=== PATIENT | male | born 1955 | race Caucasian/White ===

== ENCOUNTER 2019-09-25 17:34 | Emergency (ER) | payer OTHER ==
--- NOTE | 2019-09-25 18:17 | ED Physician Documentation ---
PD HPI HEENT - Stated complaint Stated Complaint: HEARING AID STUCK IN EAR - Chief complaint Chief Complaint: Heent - History obtained from History obtained from: Patient - History of Present Illness Timing - onset: How many hours ago (2) Timing - duration: Hours (2) Timing - details: Abrupt onset (his mask earloop caught hearing aid as he took it off, and this twisted hearing aide out, but the dome detached and is stuck in ear canal, beyond reach of fingers.), Still present Location: Right ear Similar symptoms before: Has not had sx before Review of Systems Ears: reports: Loss of hearing (diminished). denies: Ear pain, Drainage/discharge, Tinnitus/ringing PD PAST MEDICAL HISTORY - Past Medical History Cardiovascular: Hypertension Respiratory: None Neuro: None GI: Diverticulitis - Past Surgical History Past Surgical History: No - Present Medications Home Medications: Ambulatory Orders Medication Instructions Recorded Confirmed Cyclobenzaprine [Flexeril] 10 mg PO TID PRN #20 tablet 02/22/14 Lisinopril 20 mg PO DAILY 02/22/14 02/22/14 Cyclobenzaprine [Flexeril] 10 mg PO TID PRN #20 tablet 07/09/14 oxyCODONE/ACET 5/325 [Percocet 5 1 - 2 each PO Q4-6H PRN #20 tablet 15 mg/325 mg] - Allergies Allergies/Adverse Reactions: Allergies Allergy/AdvReac Type Severity Reaction Status Date / Time codeine Allergy Unknown Verified 02/22/14 08:30 - Social History Does the pt smoke?: No Smoking Status: Never smoker Does the pt drink ETOH?: No Does the pt have substance abuse?: No - POLST Patient has POLST: No PD ED PE NORMAL - Vitals Vital signs reviewed: Yes - General General: Alert and oriented X 3, No acute distress, Well developed/nourished - HEENT HEENT: No: Ears normal (left normal. right mid canal with plastic appearing dome shaped FB c/w piece of hearing aide. ) Results - Vitals Vitals: Vital Signs - 24 hr 09/25/19 09/25/19 17:39 18:30 Temperature 36.8 C 37 C Heart Rate 77 76 Respiratory 18 16 Rate Blood Pressure 127/80 136/80 H O2 Saturation 96 98 Oxygen O2 Source Room air Procedures - FB removal FB location: Ear Removal method: Foreceps FB removal aftercare: No complications, Patient tolerated well, Removed successfully PD MEDICAL DECISION MAKING - ED course Complexity details: considered differential, d/w patient Departure - Departure Disposition: 01 Home, Self Care Clinical Impression: Foreign body in ear Qualifiers: Encounter type: initial encounter Laterality: right Qualified Code(s): T16.1XXA - Foreign body in right ear, initial encounter Condition: Stable Record reviewed to determine appropriate education?: Yes Instructions: ED Foreign Body Ear Canal Follow-Up: Fox Miramontes MD [Primary Care Provider] - Comments: The object is removed. The canal looks okay otherwise. There could potentially be a slight irritation and there for a day or so. Discharge Date/Time: 09/25/19 18:33
[2019-09-25 18:31] VITALS: BP 136/80
== END 2019-09-25 18:33 | disposition home or self-care (01) ==
LOC: ED 17:34
DX: T16.1XXA Foreign body in right ear, initial encounter (principal); X58.XXXA Exposure to other specified factors, initial encounter; Y93.89 Activity, other specified; I10 Essential (primary) hypertension
CPT/HCPCS: 69200; 99282

== ENCOUNTER 2020-04-04 11:48 | Outpatient (CLI) | payer OTHER | END 2020-04-04 11:49 | disposition left against medical advice (07) | LOC: EMS 11:48 | DX: S61.212A Laceration without foreign body of right middle finger without damage to nail, initial encounter (principal); S61.214A Laceration without foreign body of right ring finger without damage to nail, initial encounter; S61.216A Laceration without foreign body of right little finger without damage to nail, initial encounter; W29.8XXA Contact with other powered hand tools and household machinery, initial encounter; Y93.89 Activity, other specified ==

== ENCOUNTER 2022-08-18 08:10 | Outpatient (CLI) | payer MEDICARE, OTHER ==
[2022-08-18 12:19] LABS: BILIRUBIN,URINE NEGATIVE (NEGATIVE); GLUCOSE, URINE (UA) NEGATIVE (NEGATIVE); KETONES,URINE (UA) NEGATIVE (NEGATIVE); LEUKOCYTE ESTERASE, URINE NEGATIVE (NEGATIVE); NITRITE,URINE NEGATIVE (NEGATIVE); OCCULT BLOOD,URINE NEGATIVE (NEGATIVE); PH,URINE 7.5 PH (5.0-7.5); PROTEIN,URINE NEGATIVE (NEGATIVE); UROBILINOGEN,URINE 0.2 (NORMAL) E.U./dL (NORMAL)
[2022-08-18 12:21] LABS: BASOPHILS # (AUTO) 0.1 10^3/uL (0.0-0.1); BASOPHILS % (AUTO) 0.9 %; EOSINOPHILS # (AUTO) 0.2 10^3/uL (0.0-0.7); EOSINOPHILS % (AUTO) 2.3 %; HCT - HEMATOCRIT 47.5 % (42.0-52.0); HGB - HEMOGLOBIN 15.5 g/dL (14.0-18.0); LYMPHOCYTES # (AUTO) 2.6 10^3/uL (1.5-3.5); LYMPHOCYTES % (AUTO) 36.8 %; MEAN CORPUSCULAR HEMOGLOBIN 27.8 pg (27.0-31.0); MEAN CORPUSCULAR HGB CONC 32.6 g/dL (32.0-36.0); MEAN CORPUSCULAR VOLUME 85.3 fL (80.0-94.0); MEAN PLATELET VOLUME 10.7 fL (7.4-11.4); MONOCYTES # (AUTO) 0.7 10^3/uL (0.0-1.0); MONOCYTES % (AUTO) 10.4 %; NEUTROPHILS # (AUTO) 3.4 10^3/uL (1.5-6.6); NEUTROPHILS % (AUTO) 48.7 %; PLT - PLATELET COUNT 243 10^3/uL (130-450); RED BLOOD COUNT 5.57 10^6/uL (4.70-6.10); RED CELL DISTRIBUTION WIDTH 13.2 % (12.0-15.0)
[2022-08-18 12:31] LABS: BACTERIA,URINE Rare /HPF (None Seen); CLARITY,URINE CLEAR (CLEAR); RBC,URINE 0-5 /HPF (0-5); SQUAMOUS EPITHELIAL CELL,UR NONE SEEN (<= Few); WBC,URINE 0-3 /HPF (0-3)
[2022-08-18 12:36] LABS: ALBUMIN 4.3 g/dL (3.2-5.5); ALBUMIN/GLOBULIN RATIO 1.4 (1.0-2.2); ALKALINE PHOSPHATASE 62 IU/L (42-121); ALT ALANINE AMINOTRANSFERASE 23 IU/L (10-60); AST ASPARTATE AMINOTRANSFERASE 20 IU/L (10-42); BILIRUBIN,TOTAL 0.7 mg/dL (0.2-1.0); BUN - BLOOD UREA NITROGEN 20 mg/dL (6-20); CARBON DIOXIDE - CO2 27 mmol/L (21-32); CHLORIDE 105 mmol/L (101-111); CHOLESTEROL 189 mg/dL; CREATININE 1.1 mg/dL (0.6-1.2); GFR - MDRD 67 (>89); GLUCOSE 94 mg/dL (70-100); HDL CHOLESTEROL 47 mg/dL; LDL CHOLESTEROL,CALCULATED 119 mg/dL; LDL/HDL RATIO 2.5 (<3.6); POTASSIUM 4.1 mmol/L (3.5-5.0); SODIUM 138 mmol/L (135-145); TOTAL PROTEIN 7.3 g/dL (6.7-8.2); TRIGLYCERIDES 115 mg/dL; VLDL CHOLESTEROL 23 mg/dL
== END 2022-08-18 08:11 | disposition home or self-care (01) ==
LOC: LAB.N 08:10
PROVIDERS: ATTEND Nurse Practitioner
DX: I10 Essential (primary) hypertension (principal); Z12.5 Encounter for screening for malignant neoplasm of prostate
CPT/HCPCS: 36415; 80053; 80061; 81001; 85025; G0103; 83721; 84153

== ENCOUNTER 2022-09-04 07:27 | Outpatient (CLI) | payer MEDICARE, OTHER ==
--- NOTE | 2022-09-04 11:30 | Ultrasound Report ---
PROCEDURE: Aorta Screening INDICATIONS: AAA SCREENING TECHNIQUE: Real time scanning was performed of the aorta and iliac arteries, with image documentatio n. COMPARISON: None. FINDINGS: Aorta: Proximal aortic diameter measures 2.5 x 2.6 cm. Mid-aorta measures 2.4 x 2.4 cm. Distal aor tic diameter is 2.3 x 2.2 cm. Iliac arteries: Right common iliac artery measures 1.1 x 1.2 cm. Left common iliac artery measures 1.3 x 1.2 cm. IMPRESSION: No evidence for abdominal aortic or common iliac artery aneurysm. Recommended intervals for follow-up imaging of ectatic aortas and abdominal aortic aneurysms, per ACR consensus guidelines: 2.5-2.9 cm: 5 years 3.0-3.4 cm: 3 years 3.5-3.9 cm: 2 years 4.0-4.4 cm: 1 year 4.5-4.9 cm: 6 months + endovascular referral 5.0-5.5 cm: 3-6 months + endovascular referral Reviewed by: Sánchez More MD on 09/04/2022 10:28 AM PROSPER Approved by: Sánchez More MD on 09/04/2022 10:28 AM PROSPER Station ID: [id number]
== END 2022-09-04 07:28 | disposition home or self-care (01) ==
LOC: DI 07:27
PROVIDERS: ATTEND Nurse Practitioner
DX: Z13.6 Encounter for screening for cardiovascular disorders (principal)

== ENCOUNTER 2023-03-21 07:44 | Day surgery (SDC) | payer MEDICARE, OTHER ==
[2023-03-21] MEDS: LACTATED RINGERS 1,000 ML IV ONE (07:51)
--- NOTE | 2023-03-21 09:00 | ANESTHESIA ---
Pre-Anesthesia VS, & Labs - Diagnosis screening exam - Procedure colonoscopy Vital Signs: Temp Pulse Resp BP Pulse Ox O2 Flow Rate 37.3 C 61 12 130/86 H 97 03/21/23 08:09 03/21/23 08:09 03/21/23 08:09 03/21/23 08:09 03/21/23 08:09 Height: 5 ft 10 in Weight (kg): 87 kg Body Mass Index: 27.5 BMI Classification: Overweight - NPO >8 hours Home Medications and Allergies Lisinopril 20 mg PO DAILY 02/22/14 spiriva inhaler Allergies/Adverse Reactions: Allergies Allergy/AdvReac Type Severity Reaction Status Date / Time codeine Allergy Unknown Verified 02/22/14 08:30 Anes History & Medical History - Anesthetic History Family history of Anesthesia Complications: Denies Family history of Malignant Hyperthermia: Denies - Medical History Cardiovascular: reports: Hypertension Pulmonary: reports: COPD, Other (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) Gastrointestinal: reports: Diverticulitis Urinary: reports: None Neuro: reports: None Musculoskeletal: reports: None Endocrine/Autoimmune: reports: None Blood Disorders: reports: None Skin: reports: None Smoking Status: Never smoker Psychosocial: reports: No issues indicated History of Cancer?: No - Surgical History General: reports: Colonoscopy Orthopedic: reports: Other Exam General: Alert, Oriented x3, Cooperative, No acute distress Dental: WNL Mouth Openin Fingerbreadth Neck Mobility: Normal Mallampati classification: I Thyromental Distance: 4-6 cm Mental/Cognitive Status: Alert/Oriented X3, Normal for patient Plan Anesthesia Type: General, Total IV Consent for Procedure(s) Verified and Reviewed: Yes Code Status: Attempt Resuscitation ASA classification: 2-Mild systemic disease Is this case an emergency?: No
[2023-03-21] MEDS ORDERED: PROPOFOL 500 MG/50 ML 500 MG/50 ML VIAL ONE (09:19)
[2023-03-21] MEDS: LACTATED RINGERS 800 ML IV ONE (09:43)
[2023-03-21 09:53] VITALS: O2SAT 95
[2023-03-21 10:04] VITALS: BP 107/76
--- NOTE | 2023-03-21 12:15 | ANESTHESIA POST OP EVALUATION ---
Anesthesia Post Eval - Post Anesthesia Eval Vitals: Last Vital Signs Temp 36.7 C 03/21/23 09:55 Pulse 57 L 03/21/23 09:55 Resp 16 03/21/23 09:55 BP 107/76 03/21/23 09:55 Pulse Ox 95 03/21/23 09:55 O2 Flow Rate CV Function Including HR & BP: Stable Pain Control: Satisfactory Nausea & Vomiting: Negative Mental Status: Baseline Respiratory Status: Airway Patent Hydration Status: Satisfactory Anesthesia Complications: None
== END 2023-03-21 07:45 | disposition home or self-care (01) ==
LOC: SDS 07:44
PROVIDERS: ATTEND Surgery
PROC: 0DBL8ZZ Excision of Transverse Colon, Via Natural or Artificial Opening Endoscopic (ICD-10-PCS; 2023-03-21)
PROC: 0DBH8ZZ Excision of Cecum, Via Natural or Artificial Opening Endoscopic (ICD-10-PCS; principal; 2023-03-21 09:00)
DX: Z12.11 Encounter for screening for malignant neoplasm of colon (principal); D12.0 Benign neoplasm of cecum; D12.3 Benign neoplasm of transverse colon; K57.30 Diverticulosis of large intestine without perforation or abscess without bleeding; K64.1 Second degree hemorrhoids; J44.9 Chronic obstructive pulmonary disease, unspecified; Z57.5 Occupational exposure to toxic agents in other industries
CPT/HCPCS: 45385; J7120

== ENCOUNTER 2023-03-30 10:46 | Outpatient (CLI) | payer MEDICARE, OTHER ==
--- NOTE | 2023-03-30 15:26 | XRAY Report ---
PROCEDURE: Chest 2V INDICATIONS: CHRONIC OBSTRUCTIVE PULMONARY DISEASE, UNSPECIFIED TECHNIQUE: 2 views of the chest were acquired. COMPARISON: Rib series 02/22/2014 FINDINGS: Surgical changes and devices: None. Lungs and pleura: There is chronic elevation of the left hemidiaphragm. No acute consolidation. Smal l nodular opacity is seen at the right upper lung zone with adjacent linear atelectasis or scarring, new when compared to the remote prior exam from 2014. No pleural effusions or pneumothorax. Mediastinum: Mediastinal contours appear normal. Heart size is normal. Bones and chest wall: No suspicious bony lesions. Overlying soft tissues appear unremarkable. IMPRESSION: 1.Small nodular opacity at the right upper lobe may represent scarring although a pulmonary nodule is not excluded. Consider CT of the chest for further evaluation. 2.No acute consolidation. 3.Chronic elevation of the left hemidiaphragm. Reviewed by: Kevin Maurice MD on 03/30/2023 3:24 PM PST Approved by: Kevin Maurice MD on 03/30/2023 3:24 PM PST Station ID: [id number]
== END 2023-03-30 10:47 | disposition home or self-care (01) ==
LOC: DI.N 10:46
PROVIDERS: ATTEND Nurse Practitioner
DX: R91.8 Other nonspecific abnormal finding of lung field (principal); J44.9 Chronic obstructive pulmonary disease, unspecified

== ENCOUNTER 2023-04-07 12:57 | Outpatient (CLI) | payer MEDICARE, OTHER ==
--- NOTE | 2023-04-07 17:14 | CT Report ---
PROCEDURE: Chest WO INDICATIONS: ABN CHEST XRAY TECHNIQUE: A CT scan of the chest was performed. Intravenous contrast media was not administered. Images were re corded and evaluated at appropriate window settings. Reformats: axial MIP of the chest, coronal and s agittal. For radiation dose reduction, the following was used: automated exposure control, adjustment of mA and/or kV according to patient size. COMPARISON: Chest radiograph 03/30/2023. FINDINGS: Image quality: Diagnostic. Chest wall and lower neck: No thyroid nodule which requires sonographic follow up. No axillary or sup raclavicular adenopathy by size. Lungs and pleura: No consolidation. No pleural effusions. No pneumothorax. There is a spiculated mas s in the right upper lobe measuring 1.2 x 1.8 cm (4/39). This finding corresponds to nodular opacity seen on recent radiograph. Mediastinum: Heart size is normal. No pericardial effusion. No large vessel abnormality. No mediastin al adenopathy by size criteria. Bones: No aggressive osseous abnormality. Upper Abdomen: Multiple hepatic hypodensities (at least 10). IMPRESSION: Right upper lobe 1.8 cm spiculated nodule. Finding may represent malignancy. Recommend further evalu ation with PET/CT and/or tissue sampling. No thoracic lymphadenopathy. Multiple hepatic hypodensities are indeterminate. Recommend further evaluation with multiphase CT or MRI. Reviewed by: Mirtha Rivero MD on 04/07/2023 5:13 PM PST Approved by: Mirtha Rivero MD on 04/07/2023 5:13 PM PST Station ID: [id number]
== END 2023-04-07 12:58 | disposition home or self-care (01) ==
LOC: DI 12:57
PROVIDERS: ATTEND Nurse Practitioner
DX: R91.1 Solitary pulmonary nodule (principal); R93.2 Abnormal findings on diagnostic imaging of liver and biliary tract

== ENCOUNTER 2023-04-22 12:57 | Outpatient (CLI) | payer MEDICARE, OTHER ==
[2023-04-22] MEDS ORDERED: GADOTERATE MEGLUMINE 10 MMOL/20 ML VIAL ONE (12:58)
[2023-04-22 13:34] LABS: CREATININE 1.2 mg/dL (0.6-1.3)
[2023-04-22] MEDS: GADOTERATE MEGLUMINE 10 MMOL/20 ML VIAL IVP ONE (14:11)
--- NOTE | 2023-04-25 09:21 | MRI Report ---
PROCEDURE: Abdomen W/WO INDICATIONS: DISORDERS OF LIVER CONTRAST: CLARISCAN 17.2 ML TECHNIQUE: Coronal ultra fast SE, axial 2D spoiled GE in- and [id number]; axial breath-hold T2 fast SE. Dynam ic axial ultra fast GE during the administration of contrast; post-contrast coronal ultra fast GE or 2D spoiled GE with fat saturation from the hepatic dome to the iliac crests. Optional diffusion weig hted imaging and ADC may be performed. COMPARISON: CT chest without contrast 04/07/2023. FINDINGS: Image quality: Excellent. Lung bases and heart: Unremarkable. Liver: No solid mass. No suspicious enhancement or restricted diffusion. Multiple T2 hyperintense cys ts. A larger cyst in the right lobe of liver measures 1.8 cm, (05/08). Gallbladder and biliary tree: No radiopaque stones or wall thickening. No biliary dilation. Spleen: No splenomegaly. Pancreas: No pancreatic ductal dilation. No cyst or mass. Adrenals: No adrenal nodule. Kidneys and ureters: No hydronephrosis. No renal cystic lesion which requires follow up. No solid mas s. Bowel and peritoneum: No bowel distension. No pathologic free fluid. Lymph nodes: No central or retroperitoneal adenopathy. Vessels: No infrarenal aortic aneurysm. Bones: No aggressive osseous abnormality. Minimal scoliosis. Other: No significant ventral hernia. IMPRESSION: No mass or suspicious enhancement. Multiple benign liver cysts. Reviewed by: Denzel Mcbride MD on 04/25/2023 9:20 AM PDT Approved by: Denzel Mcbride MD on 04/25/2023 9:20 AM PDT Station ID: [id number]
== END 2023-04-22 12:58 | disposition home or self-care (01) ==
LOC: DI 12:57
PROVIDERS: ATTEND Nurse Practitioner
DX: K76.89 Other specified diseases of liver (principal)
CPT/HCPCS: 36415; 74183; 82565; A9575